=== PATIENT | female | born 2000 | race American Indian/Alaskan Native ===

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

== ENCOUNTER 2018-08-22 15:57 | Emergency (ER) | payer OTHER ==
--- NOTE | 2018-08-22 16:41 | Emergency Department Report ---
Blank Doc - Documentation Documentation: This is a 17-year-old female that presents with sore throat. This initial assessment/diagnostic orders/clinical plan/treatment(s) is/are subject to change based on patient's health status, clinical progression and re- assessment by fellow clinical providers in the ED. Further treatment and workup at subsequent clinical providers discretion. Patient/guardians urged not to elope from the ED as their condition may be serious if not clinically assessed and managed. Initial orders include: 1- Patient sent to [facility] for further evaluation and treatment 2- strep swab
[2018-08-22 16:43] VITALS: BP 114/76
[2018-08-22] MEDS ORDERED: DELTASONE PO ONE (20:26)
[2018-08-22] MEDS ORDERED: IBUPROFEN PO ONE (20:26)
[2018-08-22] MEDS ORDERED: TRIMOX PO ONE (20:26)
--- NOTE | 2018-08-22 20:38 | Emergency Department Report ---
ED ENT HPI - General Chief complaint: Sore Throat Stated complaint: SORE THROAT Time Seen by Provider: 08/22/18 16:40 Source: patient Mode of arrival: Ambulatory Limitations: No Limitations - History of Present Illness Initial comments: This is a 17-year-old female that presents with sore throat. apin is 5/10 exacerbated by eating relieved by nothing fever at night, [facility] complaint: sore throat Onset/Timin -: week(s) Location: throat Severity: moderate Severity scale (0 -10): 5 Quality: sharp Consistency: constant Improves with: none Worsens with: swallowing Associated Symptoms: fever, sore throat - Related Data Previous Rx's Medication Instructions Recorded Last Taken Type Acetaminophen/Codeine [Tylenol #3] 1 tab PO Q6H PRN #10 tab 06/06/18 Unknown Rx Ketorolac Tromethamine [Acular] 1 - 2 drops OS Q6H PRN #1 bottle 06/06/18 Unknown Rx Amoxicillin 500 mg PO TID 10 Days #30 capsule 08/22/18 Unknown Rx Ibuprofen 800 mg PO TID PRN #30 tablet 08/22/18 Unknown Rx predniSONE [Deltasone] 40 mg PO QDAY 5 Days #10 tab 08/22/18 Unknown Rx Allergies Allergy/AdvReac Type Severity Reaction Status Date / Time No Known Allergies Allergy Unverified 06/06/18 15:35 ED Dental HPI - General Chief complaint: Sore Throat Stated complaint: SORE THROAT Time Seen by Provider: 08/22/18 16:40 Source: patient Mode of arrival: Ambulatory Limitations: No Limitations - Related Data Previous Rx's Medication Instructions Recorded Last Taken Type Acetaminophen/Codeine [Tylenol #3] 1 tab PO Q6H PRN #10 tab 06/06/18 Unknown Rx Ketorolac Tromethamine [Acular] 1 - 2 drops OS Q6H PRN #1 bottle 06/06/18 Unknown Rx Amoxicillin 500 mg PO TID 10 Days #30 capsule 08/22/18 Unknown Rx Ibuprofen 800 mg PO TID PRN #30 tablet 08/22/18 Unknown Rx predniSONE [Deltasone] 40 mg PO QDAY 5 Days #10 tab 08/22/18 Unknown Rx Allergies Allergy/AdvReac Type Severity Reaction Status Date / Time No Known Allergies Allergy Unverified 06/06/18 15:35 ED Review of Systems ROS: Stated complaint: SORE THROAT Other details as noted in HPI Constitutional: denies: chills, fever Eyes: denies: eye pain, eye discharge, vision change ENT: throat pain. denies: ear pain Respiratory: denies: cough, shortness of breath, wheezing Cardiovascular: denies: chest pain, palpitations Endocrine: no symptoms reported Gastrointestinal: denies: abdominal pain, nausea, vomiting, diarrhea Genitourinary: denies: urgency, dysuria, discharge Musculoskeletal: denies: back pain, joint swelling, arthralgia Skin: denies: rash, lesions Neurological: denies: headache, weakness, paresthesias Psychiatric: denies: anxiety, depression Hematological/Lymphatic: denies: easy bleeding, easy bruising ED Past Medical Hx - Past Medical History Previous Medical History?: No - Surgical History Past Surgical History?: No - Social History Smoking Status: Current Every Day Smoker - Medications Home Medications: Home Medications Medication Instructions Recorded Confirmed Last Taken Type Acetaminophen/Codeine [Tylenol #3] 1 tab PO Q6H PRN #10 tab 06/06/18 Unknown Rx Ketorolac Tromethamine [Acular] 1 - 2 drops OS Q6H PRN #1 bottle 06/06/18 Unknown Rx Amoxicillin 500 mg PO TID 10 Days #30 capsule 08/22/18 Unknown Rx Ibuprofen 800 mg PO TID PRN #30 tablet 08/22/18 Unknown Rx predniSONE [Deltasone] 40 mg PO QDAY 5 Days #10 tab 08/22/18 Unknown Rx ED Physical Exam - General Limitations: No Limitations General appearance: alert, in no apparent distress - Head Head exam: Present: atraumatic, normocephalic - Eye Eye exam: Present: normal appearance, PERRL, EOMI Pupils: Present: normal accommodation - ENT ENT exam: Present: mucous membranes moist, TM's normal bilaterally, normal external ear exam - Expanded ENT Exam Expanded Throat exam: Positive: tonsillar erythema, tonsillomegaly, tonsillar exudate, other (uvula midline no stridor no wheezing ). Negative: R peritonsillar mass, L peritonsillar mass - Neck Neck exam: Present: normal inspection, full ROM, lymphadenopathy. Absent: tenderness, meningismus, thyromegaly - Expanded Neck Exam Expanded Neck exam: Absent: tenderness, midline deformity, anterior neck swelling, thyroid mass, carotid bruit, tracheal deviation - Respiratory Respiratory exam: Present: normal lung sounds bilaterally. Absent: respiratory distress, wheezes, stridor, chest wall tenderness - Cardiovascular Cardiovascular Exam: Present: regular rate, normal rhythm, normal heart sounds. Absent: systolic murmur, diastolic murmur, rubs, gallop - GI/Abdominal GI/Abdominal exam: Present: soft, normal bowel sounds - Rectal Rectal exam: Present: deferred - Extremities Exam Extremities exam: Present: normal inspection, full ROM, normal capillary refill. Absent: tenderness - Back Exam Back exam: Present: normal inspection, full ROM. Absent: tenderness, CVA tenderness (R), CVA tenderness (L), rash noted - Neurological Exam Neurological exam: Present: alert, oriented X3, CN II-XII intact, reflexes normal - Psychiatric Psychiatric exam: Present: normal affect, normal mood - Skin Skin exam: Present: warm, dry, intact, normal color. Absent: rash ED Course Vital Signs 08/22/18 16:41 Temperature 97.5 F L Pulse Rate 103 H Respiratory 20 Rate Blood Pressure 114/76 O2 Sat by Pulse 100 Oximetry ED Medical Decision Making - Medical Decision Making this is pharyngitis , plan; prednisone,amoxicillin, ibuprofen, follow up with pcp in 2-3 days pt verbalized agreement and understanding of same. pt to home in stable condition at this time. Critical care attestation.: If time is entered above; I have spent that time in minutes in the direct care of this critically ill patient, excluding procedure time. ED Disposition Clinical Impression: Pharyngitis Qualifiers: Pharyngitis/tonsillitis etiology: unspecified etiology Qualified Code(s): J02.9 - Acute pharyngitis, unspecified Disposition: TO HOME OR SELFCARE Is pt being admited?: No Does the pt Need Aspirin: No Condition: Stable Instructions: Pharyngitis (ED) Prescriptions: Amoxicillin 500 mg PO TID 10 Days #30 capsule predniSONE [Deltasone] 40 mg PO QDAY 5 Days #10 tab Ibuprofen 800 mg PO TID PRN #30 tablet PRN Reason: pain fever Referrals: AVERY MOCTEZUMA MD [Primary Care Provider] - 3-5 Days Forms: Work/School Release Form(ED) Time of Disposition: 20:42
== END 2018-08-22 20:38 | disposition home or self-care (01) ==
LOC: ED 15:57
DX: J02.9 Acute pharyngitis, unspecified (principal); F17.200 Nicotine dependence, unspecified, uncomplicated
CPT/HCPCS: 87116; 87430; 99283; J7512

== ENCOUNTER 2018-09-10 11:43 | Emergency (ER) | payer OTHER ==
[2018-09-10] MEDS ORDERED: XYLOCAINE 1% 20 mL INFILTRATI ONE (11:51)
[2018-09-10] MEDS ORDERED: NACL 0.9% IR ONE (11:51)
[2018-09-10] MEDS ORDERED: IBUPROFEN PO ONE (11:51)
--- NOTE | 2018-09-10 11:51 | Emergency Department Report ---
Chief Complaint: Wound/Laceration Stated Complaint: RT ARM CUT/PAIN Time Seen by Provider: 09/10/18 11:50 - HPI History of Present Illness: large r arm full thickness lac bleeding controlled- wound wrapped in towel pt to main mse completed - Exam Vital Signs: Vital Signs 09/10/18 11:44 Temperature 99.2 F Pulse Rate 116 H Respiratory 18 Rate Blood Pressure 122/90 O2 Sat by Pulse 99 Oximetry MSE screening note: Focused history and physical exam performed. Due to findings the following was ordered: ED Disposition for MSE Condition: Stable
[2018-09-10] MEDS ORDERED: NORCO 5/325 PO ONE (12:00)
[2018-09-10] MEDS ORDERED: BOOSTRIX IM ONE (12:01)
--- NOTE | 2018-09-10 12:06 | Emergency Department Report ---
HPI - General Chief Complaint: Wound/Laceration Time Seen by Provider: 09/10/18 11:50 - HPI HPI: Room 4 The patient is a 17-year-old female presenting with chief complaint of right forearm laceration. The patient states just prior to arrival while cleaning her mirror fell and broke cutting her right forearm. Patient gives her pain score of 9/10 Location: Right forearm Duration: [See above] Quality: [See above] Severity: [See above] Modifying factors: [see above] Context: [see above] Mode of transportation: [not driving] ED Past Medical Hx - Past Medical History Previous Medical History?: No - Surgical History Past Surgical History?: No - Family History Family history: no significant - Social History Smoking Status: Never Smoker Substance Use Type: None - Medications Home Medications: Home Medications Medication Instructions Recorded Confirmed Last Taken Type Acetaminophen/Codeine [Tylenol #3] 1 tab PO Q6H PRN #10 tab 06/06/18 Unknown Rx Ketorolac Tromethamine [Acular] 1 - 2 drops OS Q6H PRN #1 bottle 06/06/18 Unknown Rx Amoxicillin 500 mg PO TID 10 Days #30 capsule 08/22/18 Unknown Rx Ibuprofen 800 mg PO TID PRN #30 tablet 08/22/18 Unknown Rx predniSONE [Deltasone] 40 mg PO QDAY 5 Days #10 tab 08/22/18 Unknown Rx HYDROcodone/APAP 5-325 [[place] 1 - 2 each PO Q6HR PRN #10 tablet 09/10/18 Unknown Rx 5/325] Ibuprofen [Motrin 800 MG tab] 800 mg PO Q8HR PRN #20 tablet 09/10/18 Unknown Rx ED Review of Systems ROS: Stated complaint: RT ARM CUT/PAIN Other details as noted in HPI Skin: other (laceration) Physical Exam - Physical Exam Vital Signs: Vital Signs 09/10/18 11:44 Temperature 99.2 F Pulse Rate 116 H Respiratory 18 Rate Blood Pressure 122/90 O2 Sat by Pulse 99 Oximetry Physical Exam: GENERAL: The patient is well-developed well-nourished female sitting on stretcher holding right arm wrapped in a towel not appearing to be in acute distress. [] HEENT: Normocephalic. Atraumatic. Extraocular motions are intact. Patient has moist mucous membranes. NECK: Supple. Trachea midline CHEST/LUNGS: There is no respiratory distress noted. HEART/CARDIOVASCULAR: Regular. There is no tachycardia. There is no gallop rub or murmur. ABDOMEN: There is no abdominal distention. SKIN: Triangular laceration to the right forearm approximately 8 cm in total length. Linear laceration distal to the first laceration approximately 5 cm in length NEURO: The patient is awake, alert, and oriented. The patient is cooperative. The patient has normal speech MUSCULOSKELETAL: There is no limitation range of motion. ED Course Vital Signs 09/10/18 11:44 Temperature 99.2 F Pulse Rate 116 H Respiratory 18 Rate Blood Pressure 122/90 O2 Sat by Pulse 99 Oximetry - Reevaluation(s) Reevaluation #1: 09/10/18 13:37 Heart rate 96 - Laceration /Wound Repair Right Arm Wound Location: upper extremity Wound's Depth, Shape: flap Wound Explored: clean Irrigated w/ Saline (ccs): 500 Betadine Prep?: Yes Anesthesia: 1% Lidocaine Volume Anesthetic (ccs): 10 (lidocaine was mixed with bupivacaine 0.25% in a 1:1 ratio) Wound Repaired With: sutures Suture Size/Type: 4:0, nylon Number of Sutures: 13 Layer Closure?: No Sterile Dressing Applied?: Yes ED Medical Decision Making - Radiology Data Radiology results: image reviewed (right forearm x-ray) interpreted by me: Right forearm x-ray-no foreign bodies. No fracture seen - Differential Diagnosis forearm laceration Critical care attestation.: If time is entered above; I have spent that time in minutes in the direct care of this critically ill patient, excluding procedure time. ED Disposition Clinical Impression: Laceration of right forearm, Right arm pain Disposition: TO HOME OR SELFCARE Is pt being admited?: No Does the pt Need Aspirin: No Condition: Stable Instructions: Suture Care (ED), Laceration (ED) Additional Instructions: Return to the emergency department immediately should you develop worsening symptoms, fever, inability to tolerate food or liquid or any other concerns. Prescriptions: Ibuprofen [Motrin 800 MG tab] 800 mg PO Q8HR PRN #20 tablet PRN Reason: Pain, Moderate (4-6) HYDROcodone/APAP 5-325 [[place] 5/325] 1 - 2 each PO Q6HR PRN #10 tablet PRN Reason: Pain Referrals: [facility] [Outside] - 3-5 Days Time of Disposition: 13:20
[2018-09-10] MEDS ORDERED: MARCAINE 0.25% INFILTRATI ONE (12:43)
[2018-09-10] MEDS ORDERED: TRIPLE ANTIBIOTIC TP ONE (13:24)
[2018-09-10 13:43] VITALS: BP 113/69
--- NOTE | 2018-09-10 14:24 | XRay Report ---
PROCEDURE: XR FOREARM RT TECHNIQUE: AP and lateral radiographs of the forearm were performed. HISTORY: laceration from broken mirror COMPARISONS: None. FINDINGS: No fracture. No dislocation. Normal mineralization. There is a laceration along the posterior aspect of the right mid forearm. No retained radiopaque for eign body is seen. IMPRESSION: Laceration of the right forearm without retained radiopaque foreign body. This document is electronically signed by Yola Castro., September 10 2018 02:22:51 PM ET
== END 2018-09-10 13:43 | disposition home or self-care (01) ==
LOC: ED 11:43
DX: S51.811A Laceration without foreign body of right forearm, initial encounter (principal); W25.XXXA Contact with sharp glass, initial encounter; Y93.89 Activity, other specified; Y92.89 Other specified places as the place of occurrence of the external cause; Y99.8 Other external cause status
CPT/HCPCS: 90471; 90715; A6250